=== PATIENT | male | born 1945 | race Asian ===

== ENCOUNTER 2017-06-01 12:51 | Outpatient (CLI) | payer MEDICARE, OTHER | END 2017-06-01 12:52 | disposition home or self-care (01) | LOC: LABBT 12:51 | PROVIDERS: ATTEND Surgery | DX: Z01.818 Encounter for other preprocedural examination (principal); K40.90 Unilateral inguinal hernia, without obstruction or gangrene, not specified as recurrent | CPT/HCPCS: 93005; 93010 ==

== ENCOUNTER 2017-06-08 08:34 | Outpatient (CLI) | payer MEDICARE, OTHER | END 2017-06-08 08:35 | disposition home or self-care (01) | LOC: BICMRI 08:34 | PROVIDERS: ATTEND Family Medicine | DX: M47.896 Other spondylosis, lumbar region (principal) | CPT/HCPCS: 72148 ==

== ENCOUNTER 2017-06-12 09:09 | Day surgery (SDC) | payer MEDICARE, OTHER ==
[2017-06-01 15:48] VITALS: BMI 25.3
[2017-06-12] MEDS ORDERED: Bupivacaine/Epinephrine 0.25% 30 ML VIAL ONE (09:39)
[2017-06-12] MEDS ORDERED: CEFAZOLIN/Water 2 GM/20 ML SYRINGE ONE (09:55)
[2017-06-12] MEDS ORDERED: Ondansetron HCl/PF 4 MG/2 ML Vial ONE ×2 (10:32→16:09)
[2017-06-12] MEDS ORDERED: Meperidine HCl/PF 25 MG/ML VIAL ONE (12:20)
[2017-06-12] MEDS ORDERED: Fentanyl 100 MCG/2 ML VIAL ONE (12:25)
[2017-06-12] MEDS ORDERED: PHENYLEPHRINE-NS 100 MCG/ML 10 ML SYRINGE ONE (16:09)
[2017-06-12] MEDS ORDERED: Dexamethasone 20 MG/5 ML VIAL ONE (16:09)
[2017-06-12] MEDS ORDERED: Propofol 200 MG/20 ML VIAL ONE (16:09)
[2017-06-12] MEDS ORDERED: Succinylcholine Chloride 20 MG/ML 10 ml SYRINGE FS ONE (16:09)
[2017-06-12] MEDS ORDERED: Glycopyrrolate 0.2 MG/ML 5 ML SYRINGE ONE (16:09)
--- NOTE | 2017-06-13 10:48 | OP ---
DATE OF PROCEDURE: 06/12/2017 PREOPERATIVE DIAGNOSIS: Right inguinal hernia. POSTOPERATIVE DIAGNOSIS: Right inguinal hernia. PROCEDURES PERFORMED: Da Ksenia laparoscopic right inguinal hernia repair with mesh, ProGrip. SURGEON: Dr. Doe. ANESTHESIA: General. ESTIMATED BLOOD LOSS: Minimal. COMPLICATIONS: None. SPECIMEN: None. FINDINGS: Right inguinal hernia. TECHNIQUE: The patient was taken to the operating room and placed supine on the table. After genera l anesthetic was obtained, Richardson was placed. The abdomen was shaved, prepped and draped in a sterile fashion. Curved incision made above the umbilicus. Cautery was used to dissect down to and score t he fascia. Abdominal cavity was entered bluntly using a 12-mm Ethicon trocar. High-flow pneumoperit oneum was obtained. The patient was placed in Trendelenburg position. Right and left abdominal 8 mm robot trocars were placed. All ports were docked to the robot. Surgeon goes to the console. The p eritoneum was taken down in the right lower quadrant and the preperitoneal space was entered. Dissec tion was performed all the way down towards the iliopectineal line. The pubic tubercle was exposed. The anterior superior iliac crest was exposed. The indirect, direct and femoral canals are all expo sed. There was no direct defect. There was an indirect hernia. The sac was dissected back off of t he peritoneum high up on the peritoneum. ProGrip mesh brought into the sterile field, placed in thro ugh the right lower quadrant port. The medial aspect was placed over pubic tubercle. The ProGrip wa s unfolded to completely cover indirect, direct and femoral areas. The peritoneum was then reapproxi mated using 3-0 Stratafix suture. All port sites were infiltrated using local anesthetic. All ports were removed under camera visualization. Pneumoperitoneum was let down. PDS was used to close the fascial defect above the umbilicus. All incisions were irrigated and closed using 4-0 Monocryl and D ermabond. The patient was en route to recovery in stable condition. All instrument counts, needle c ounts, and lap counts were correct.
== END 2017-06-12 15:55 | disposition home or self-care (01) ==
LOC: SDC 09:09
PROVIDERS: ATTEND Surgery
PROC: 0YU54JZ Supplement Right Inguinal Region with Synthetic Substitute, Percutaneous Endoscopic Approach (ICD-10-PCS; principal; 2017-06-12)
DX: K40.90 Unilateral inguinal hernia, without obstruction or gangrene, not specified as recurrent (principal); I10 Essential (primary) hypertension; E78.00 Pure hypercholesterolemia, unspecified; F41.9 Anxiety disorder, unspecified; I25.10 Atherosclerotic heart disease of native coronary artery without angina pectoris; G43.909 Migraine, unspecified, not intractable, without status migrainosus; Z95.1 Presence of aortocoronary bypass graft; Z95.5 Presence of coronary angioplasty implant and graft; Z90.89 Acquired absence of other organs; Z98.890 Other specified postprocedural states; Z79.891 Long term (current) use of opiate analgesic; Z79.82 Long term (current) use of aspirin; Z79.899 Other long term (current) drug therapy
CPT/HCPCS: J1100; J2175; J2405; J2704; J3010

== ENCOUNTER 2018-02-25 16:30 | Outpatient (CLI) | payer MEDICARE, OTHER | END 2018-02-25 16:31 | disposition home or self-care (01) | LOC: BICRAD 16:30 | PROVIDERS: ATTEND Physician Assistant Medical | DX: M79.642 Pain in left hand (principal); M18.12 Unilateral primary osteoarthritis of first carpometacarpal joint, left hand ==

== ENCOUNTER 2019-03-29 22:54 | Emergency (ER) | payer MEDICARE, OTHER ==
--- NOTE | 2019-03-29 23:43 | RAD ---
XR Foot Rt 3 View STANDARD HISTORY: Injury to foot COMPARISON: None. 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 T here are fractures involving the second third and fourth metatarsal necks fractures are minimally displaced by approximately a half shaft width. There is moderate angulation of the fourth metatarsal fracture. IMPRESSION: Second third and fourth metatarsal neck fractures.
== END 2019-03-30 00:25 | disposition home or self-care (01) ==
LOC: MERGE 22:54 → ERS 22:54
DX: S92.321A Displaced fracture of second metatarsal bone, right foot, initial encounter for closed fracture (principal); S92.331A Displaced fracture of third metatarsal bone, right foot, initial encounter for closed fracture; S92.341A Displaced fracture of fourth metatarsal bone, right foot, initial encounter for closed fracture; I10 Essential (primary) hypertension; F32.9 Major depressive disorder, single episode, unspecified; Z79.899 Other long term (current) drug therapy; W19.XXXA Unspecified fall, initial encounter

== ENCOUNTER 2021-01-05 15:20 | Outpatient (CLI) | payer MEDICARE, OTHER | END 2021-01-05 15:21 | disposition home or self-care (01) | LOC: BICMRI 15:20 | PROVIDERS: ATTEND Anesthesiology Pain Medicine | DX: M47.26 Other spondylosis with radiculopathy, lumbar region (principal); M48.061 Spinal stenosis, lumbar region without neurogenic claudication; M48.07 Spinal stenosis, lumbosacral region; M48.05 Spinal stenosis, thoracolumbar region; M47.817 Spondylosis without myelopathy or radiculopathy, lumbosacral region | CPT/HCPCS: 72148 ==

== ENCOUNTER 2022-08-16 15:08 | Outpatient (CLI) | payer MEDICARE | END 2022-08-16 15:09 | disposition home or self-care (01) | LOC: BICRAD 15:08 | PROVIDERS: ATTEND Family Medicine | DX: R05.9 Cough, unspecified (principal) | CPT/HCPCS: 71046 ==

== ENCOUNTER 2024-01-22 14:40 | Outpatient (CLI) | payer MEDICARE | END 2024-01-22 14:41 | disposition home or self-care (01) | LOC: BICRAD 14:40 | PROVIDERS: ATTEND Student in an Organized Health Care Education/Training Program | DX: M54.50 Low back pain, unspecified (principal); M47.816 Spondylosis without myelopathy or radiculopathy, lumbar region | CPT/HCPCS: 72100 ==